=== PATIENT | female | born 1990 | race Native Hawaiian/Other Pacific Islander ===

== ENCOUNTER 2018-11-14 11:10 | Inpatient (IN) | payer OTHER ==
[2018-11-14 11:13] VITALS: BMI 19.5
[2018-11-14] MEDS ORDERED: Iohexol 240 (50 ml) PO ONE (11:46)
[2018-11-14] MEDS ORDERED: Sodium Chloride 0.9% 1,000 ML IV STA ×2 (11:47→18:36)
[2018-11-14] MEDS ORDERED: Iohexol 240 (50 ml) ONE (11:55)
[2018-11-14 12:18] LABS: BASO % 0.3 % (0.0-2.0); EOS % 0.1 % (0.0-4.0); HEMOGLOBIN 12.3 g/dL (12.0-16.0); LYMPH % 7.8 % (20.0-40.0); MEAN CELL VOLUME 92.7 fl (81.0-99.0); MEAN CORPUSCULAR HEMOGLOBIN 30.5 pg (27.0-31.0); MEAN CORPUSCULAR HGB CONC 32.9 g/dL (33.0-37.0); MEAN PLATELET VOLUME 8.3 fl (7.2-11.7); MONO # 0.7 K/uL (0.0-0.8); MONO % 5.9 % (0.0-10.0); NEUT # 10.9 K/uL (1.8-7.0); NEUT % 85.9 % (50.0-75.0); PLATELET COUNT 229 K/uL (130-400); RBC 4.04 Mil/uL (3.80-5.20); WHITE BLOOD COUNT 12.7 K/uL (4.8-10.8)
[2018-11-14 12:22] LABS: SQUAMOUS EPITHIAL 3 /hpf (0-5); URINE BACTERIA OCC (<OCC); URINE BILIRUBIN NEGATIVE (NEGATIVE); URINE BLOOD SMALL (NEGATIVE); URINE CLARITY SLIGHTY-CLOUDY (Clear); URINE COLOR YELLOW (YELLOW); URINE GLUCOSE (UA) NEG (NEGATIVE); URINE LEUKOCYTE ESTERASE NEG Leu/uL (Negative); URINE PROTEIN NEGATIVE (NEGATIVE); URINE UROBILINOGEN 0.2-1.0 mg/dL (0.2-1.0)
[2018-11-14 12:29] LABS: ALB/GLOB RATIO 1.2 (1.0-2.1); ALBUMIN 4.7 g/dL (3.5-5.0); ALT/SGPT 18 U/L (9-52); AST/SGOT 19 U/L (14-36); BLOOD UREA NITROGEN 11 mg/dl (7-17); CALCIUM 9.7 mg/dL (8.4-10.2); GFR NON-AFRICAN AMERICAN > 60; LIPASE 33 U/L (23-300)
--- NOTE | 2018-11-14 12:38 | ED PDOC ---
HPI: Abdomen <Red Brito - Last Filed: 11/14/18 15:21> Chief Complaint (Provider): Abdominal Pain History Per: Patient History/Exam Limitations: no limitations Onset/Duration Of Symptoms: Days (x1) Current Symptoms Are (Timing): Still Present Additional Complaint(s): Patient is a 28 y/o female with no significant PMhx who presents to the ED for evaluation of abdominal pain and nausea onset yesterday. Patient also states the pain is radiating to her right flank. Patient denies vomiting, diarrhea, urinary symptoms, and fever. Patient claims it may be endometriosis. PCP: None Provided <Jose E Higgins A - Last Filed: 11/14/18 17:22> Time Seen by Provider: 11/14/18 11:21 Chief Complaint (Nursing): Abdominal Pain Past Medical History Vital Signs: Last Vital Signs Temp 97.9 F 11/14/18 11:13 Pulse 76 11/14/18 13:05 Resp 18 11/14/18 13:05 BP 115/68 11/14/18 13:05 Pulse Ox 100 11/14/18 15:21 <Red Brito M - Last Filed: 11/14/18 15:21> Reviewed: Historical Data, Nursing Documentation, Vital Signs Vital Signs: Last Vital Signs Temp 97.9 F 11/14/18 11:13 Pulse 82 11/14/18 11:13 Resp 18 11/14/18 11:13 BP 106/65 11/14/18 11:13 Pulse Ox 100 11/14/18 11:13 - Medical History PMH: No Chronic Diseases - Surgical History Surgical History: No Surg Hx - Family History Family History: States: No Known Family Hx - Social History Current smoker - smoking cessation education provided: No Ex-Smoker (has not smoked in the last 12 months): No Alcohol: None Drugs: Denies <Jose E Higgins - Last Filed: 11/14/18 17:22> - Allergies Allergies/Adverse Reactions: Allergies Allergy/AdvReac Type Severity Reaction Status Date / Time gentamicin Allergy RASH Verified 11/14/18 11:29 Penicillins Allergy RASH Verified 11/14/18 11:29 Review of Systems ROS Statement: Except As Marked, All Systems Reviewed And Found Negative Constitutional: Negative for: Fever Gastrointestinal: Positive for: Nausea, Abdominal Pain (raidating to right flank). Negative for: Vomiting, Diarrhea Genitourinary Female: Negative for: Dysuria, Frequency, Incontinence, Hematuria <Jose E Higgins - Last Filed: 11/14/18 17:22> Physical Exam - Reviewed Nursing Documentation Reviewed: Yes Vital Signs Reviewed: Yes - Physical Exam Appears: Positive for: Uncomfortable Head Exam: Positive for: ATRAUMATIC, NORMAL INSPECTION, NORMOCEPHALIC Skin: Positive for: Normal Color, Warm, DRY Eye Exam: Positive for: EOMI, Normal appearance, PERRL Neck: Positive for: Normal, Painless ROM, Supple Cardiovascular/Chest: Positive for: Regular Rate, Rhythm. Negative for: Murmur Respiratory: Positive for: Normal Breath Sounds. Negative for: Respiratory Distress Gastrointestinal/Abdominal: Positive for: Soft, Tenderness (diffuse; more to lower right quadrant), Guarding Back: Positive for: Normal Inspection. Negative for: L CVA Tenderness, R CVA Tenderness, Vertebral Tenderness Extremity: Positive for: Normal ROM. Negative for: Pedal Edema, Deformity Neurological/Psych: Positive for: Alert, Oriented (x3) <Jose E Higgins A - Last Filed: 11/14/18 17:22> - Laboratory Results Result Diagrams: 11/14/18 12:02 11/14/18 12:02 Lab Results: Total Bilirubin 1.2 mg/dl (0.2-1.3) 11/14/18 12:02 AST 19 U/L (14-36) 11/14/18 12:02 ALT 18 U/L (9-52) 11/14/18 12:02 Alkaline Phosphatase 51 U/L (38-126) 11/14/18 12:02 Total Protein 8.5 G/DL (6.3-8.2) H 11/14/18 12:02 Albumin 4.7 g/dL (3.5-5.0) 11/14/18 12:02 Globulin 3.8 gm/dL (2.2-3.9) 11/14/18 12:02 Albumin/Globulin Ratio 1.2 (1.0-2.1) 11/14/18 12:02 Lipase 33 U/L (23-300) 11/14/18 12:02 Urine Color Yellow (YELLOW) 11/14/18 11:54 Urine Clarity Slighty-cloudy (Clear) 11/14/18 11:54 Urine pH 7.0 (5.0-8.0) 11/14/18 11:54 Ur Specific [place] 1.009 (1.003-1.030) 11/14/18 11:54 Urine Protein Negative mg/dL (NEGATIVE) 11/14/18 11:54 Urine Glucose (UA) Neg mg/dL (NEGATIVE) 11/14/18 11:54 Urine Ketones Negative mg/dL (NEGATIVE) 11/14/18 11:54 Urine Blood Small (NEGATIVE) 11/14/18 11:54 Urine Nitrate Negative (NEGATIVE) 11/14/18 11:54 Urine Bilirubin Negative (NEGATIVE) 11/14/18 11:54 Urine Urobilinogen 0.2-1.0 mg/dL (0.2-1.0) 11/14/18 11:54 Ur Leukocyte Esterase Neg [place]/uL (Negative) 11/14/18 11:54 Urine RBC (Auto) 4 /hpf (0-3) H 11/14/18 11:54 Urine Microscopic WBC 9 /hpf (0-5) H 11/14/18 11:54 Ur Squamous Epith Cells 3 /hpf (0-5) 11/14/18 11:54 Urine Bacteria Occ (<OCC) H 11/14/18 11:54 <Red Brito M - Last Filed: 11/14/18 15:21> - Laboratory Results Result Diagrams: 11/14/18 12:02 11/14/18 12:02 Lab Results: Total Bilirubin 1.2 mg/dl (0.2-1.3) 11/14/18 12:02 AST 19 U/L (14-36) 11/14/18 12:02 ALT 18 U/L (9-52) 11/14/18 12:02 Alkaline Phosphatase 51 U/L (38-126) 11/14/18 12:02 Total Protein 8.5 G/DL (6.3-8.2) H 11/14/18 12:02 Albumin 4.7 g/dL (3.5-5.0) 11/14/18 12:02 Globulin 3.8 gm/dL (2.2-3.9) 11/14/18 12:02 Albumin/Globulin Ratio 1.2 (1.0-2.1) 11/14/18 12:02 Lipase 33 U/L (23-300) 11/14/18 12:02 Urine Color Yellow (YELLOW) 11/14/18 11:54 Urine Clarity Slighty-cloudy (Clear) 11/14/18 11:54 Urine pH 7.0 (5.0-8.0) 11/14/18 11:54 Ur Specific [place] 1.009 (1.003-1.030) 11/14/18 11:54 Urine Protein Negative mg/dL (NEGATIVE) 11/14/18 11:54 Urine Glucose (UA) Neg mg/dL (NEGATIVE) 11/14/18 11:54 Urine Ketones Negative mg/dL (NEGATIVE) 11/14/18 11:54 Urine Blood Small (NEGATIVE) 11/14/18 11:54 Urine Nitrate Negative (NEGATIVE) 11/14/18 11:54 Urine Bilirubin Negative (NEGATIVE) 11/14/18 11:54 Urine Urobilinogen 0.2-1.0 mg/dL (0.2-1.0) 11/14/18 11:54 Ur Leukocyte Esterase Neg [place]/uL (Negative) 11/14/18 11:54 Urine RBC (Auto) 4 /hpf (0-3) H 11/14/18 11:54 Urine Microscopic WBC 9 /hpf (0-5) H 11/14/18 11:54 Ur Squamous Epith Cells 3 /hpf (0-5) 11/14/18 11:54 Urine Bacteria Occ (<OCC) H 11/14/18 11:54 - ECG O2 Sat by Pulse Oximetry: 100 (RA) Pulse Ox Interpretation: Normal <Jose E Higgins - Last Filed: 11/14/18 17:22> Medical Decision Making Medical Decision Making: Time: 1145 Impression: Abdominal Pain DDx includes by not limited to acute appendicitis, ovarian cyst, endometriosis, and ovarian torsion; r/o complication. Plan: CT Abd Pelvis PO & IV Contrast CMP Lipase NPO Diet Urine Urine Dipstick CBC IV fluids Omnipaque 50 ml PO UA Time: 1230 Urine and both negative. Time: 1500 Patient endorsed from provider to Red Brito MD. Pending CT and reevaluation. Scribe Attestation: Documented by Miles Hall, acting as a scribe for Jose E Higgins MD. Provider Scribe Attestation: All medical record entries made by the Scribe were at my direction and personally dictated by me. I have reviewed the chart and agree that the record accurately reflects my personal performance of the history, physical exam, medical decision making, and the department course for this patient. I have also personally directed, reviewed, and agree with the discharge instructions and disposition. <Jose E Higgins - Last Filed: 11/14/18 17:22> Disposition <Red Brito - Last Filed: 11/14/18 15:21> - Patient ED Disposition Is Patient to be Admitted: Transfer of Care Counseled Patient/Family Regarding: Studies Performed, Diagnosis - Disposition Disposition: Transfer of Care Disposition Time: 15:00 Patient Signed Over To: Red Brito <Jose E Higgins - Last Filed: 11/14/18 17:22> - Clinical Impression Clinical Impression: UTI (urinary tract infection) - Disposition Condition: STABLE
[2018-11-14] MEDS ORDERED: Iohexol 300 100 ML IJ ONE (12:56)
[2018-11-14] MEDS ORDERED: Sodium Chloride 0.9% 50 ML IV ONE (12:56)
[2018-11-14 14:43] LABS: BANDS 3 % (0-2); LYMPHOCYTE 7 % (20-50); MONOCYTE 7 % (0-10); NEUTROPHIL 83 % (42-75); PLATELET ESTIMATE NORMAL (NORMAL); TOTAL CELLS COUNTED 100
--- NOTE | 2018-11-14 15:21 | ED PDOC ---
- Laboratory Results Result Diagrams: 11/14/18 12:02 11/14/18 12:02 Lab Results: Total Bilirubin 1.2 mg/dl (0.2-1.3) 11/14/18 12:02 AST 19 U/L (14-36) 11/14/18 12:02 ALT 18 U/L (9-52) 11/14/18 12:02 Alkaline Phosphatase 51 U/L (38-126) 11/14/18 12:02 Total Protein 8.5 G/DL (6.3-8.2) H 11/14/18 12:02 Albumin 4.7 g/dL (3.5-5.0) 11/14/18 12:02 Globulin 3.8 gm/dL (2.2-3.9) 11/14/18 12:02 Albumin/Globulin Ratio 1.2 (1.0-2.1) 11/14/18 12:02 Lipase 33 U/L (23-300) 11/14/18 12:02 Urine Color Yellow (YELLOW) 11/14/18 11:54 Urine Clarity Slighty-cloudy (Clear) 11/14/18 11:54 Urine pH 7.0 (5.0-8.0) 11/14/18 11:54 Ur Specific [place] 1.009 (1.003-1.030) 11/14/18 11:54 Urine Protein Negative mg/dL (NEGATIVE) 11/14/18 11:54 Urine Glucose (UA) Neg mg/dL (NEGATIVE) 11/14/18 11:54 Urine Ketones Negative mg/dL (NEGATIVE) 11/14/18 11:54 Urine Blood Small (NEGATIVE) 11/14/18 11:54 Urine Nitrate Negative (NEGATIVE) 11/14/18 11:54 Urine Bilirubin Negative (NEGATIVE) 11/14/18 11:54 Urine Urobilinogen 0.2-1.0 mg/dL (0.2-1.0) 11/14/18 11:54 Ur Leukocyte Esterase Neg [place]/uL (Negative) 11/14/18 11:54 Urine RBC (Auto) 4 /hpf (0-3) H 11/14/18 11:54 Urine Microscopic WBC 9 /hpf (0-5) H 11/14/18 11:54 Ur Squamous Epith Cells 3 /hpf (0-5) 11/14/18 11:54 Urine Bacteria Occ (<OCC) H 11/14/18 11:54 - ECG O2 Sat by Pulse Oximetry: 100 (RA) Pulse Ox Interpretation: Normal - Progress ED Course And Treament: 1600: Will get US. Normal appendix. Evaluate cysts on ovary. Pain states she does not want any pain meds. AAOx3. Urine wbc, blood wbc. 1810: Stable. Pt. states she had polp removed from her uterus recently. Pain possibly partially from that. Also ovarian cyst and uti. Pt. to fu with her obgyn. AAOx3. Pain controlled. Tolerated PO. Medical Decision Making Medical Decision Making: Time: 1500 Patient endorsed to provider from oJse E Higgins MD. Pending CT and r eevaluation. Time: 153 FINDINGS: LOWER THORAX: Unremarkable. LIVER: Unremarkable. No gross lesion or ductal dilatation. GALLBLADDER AND BILE DUCTS: Unremarkable. PANCREAS: Unremarkable. No gross lesion or ductal dilatation. SPLEEN: Unremarkable. ADRENALS: Unremarkable. No mass. KIDNEYS AND URETERS: Left 4 mm medial lower pole hypodensity which may be a cyst versus tiny angiomyolipoma. No hydronephrosis. No solid mass. VASCULATURE: Unremarkable. No aortic aneurysm. No aortic atherosclerotic calcification or mural plaque present. BOWEL: Unremarkable. No obstruction. No gross mural thickening. APPENDIX: Normal appendix. PERITONEUM: Unremarkable. No free fluid. No free air. LYMPH NODES: Unremarkable. No enlarged lymph nodes. BLADDER: Unremarkable. REPRODUCTIVE: 4.3 x 3.7 cm and 4.6 x 4.5 cm hypodense structures that cannot be characterized as simple cysts. Small amount of pelvic fluid that mildly enhances. Involuting corpus luteal follicle. BONES: No acute fracture. OTHER FINDINGS: None. IMPRESSION: Probable adnexal hemorrhagic cysts, possibly ruptured with small amount of free fluid in the deep pelvis which demonstrates mild enhancement. Pelvic ultrasound is recommended for further evaluation. Normal appendix. Scribe Attestation: Documented by Miles Hall, acting as a scribe for Red Brito MD. Provider Scribe Attestation: All medical record entries made by the Scribe were at my direction and personally dictated by me. I have reviewed the chart and agree that the record accurately reflects my personal performance of the history, physical exam, medical decision making, and the department course for this patient. I have also personally directed, reviewed, and agree with the discharge instructions and disposition. Disposition - Clinical Impression Clinical Impression: UTI (urinary tract infection), Ovarian cyst - POA Present On Arrival: None - Disposition Referrals: [facility] [Outside] - 11/15/18 [facility] [Outside] - 11/15/18 Disposition: Routine/Home Disposition Time: 18:13 Condition: STABLE Additional Instructions: Return if not better in 3 days. Prescriptions: Ibuprofen [Motrin] 600 mg PO TID 7 Days tab Nitrofurantoin Macrocrystals [Macrobid] 100 mg PO BID #10 cap Instructions: Ovarian Cysts, Urinary Tract Infections in Adults Forms: [facility] ED School/Work Excuse
--- NOTE | 2018-11-14 15:35 | CT ---
Date of service: 11/14/2018 PROCEDURE: CT Abdomen and Pelvis with contrast HISTORY: RLQ pain COMPARISON: None. TECHNIQUE: Contrast dose: 98 mL Omnipaque 300 Radiation dose: Total exam DLP = 252.91 mGy-cm. This CT exam was performed using one or more of the following dose reduction techniques: Automated exposure control, adjustment of the mA and/or kV according to patient size, and/or use of iterative reconstruction technique. FINDINGS: LOWER THORAX: Unremarkable. LIVER: Unremarkable. No gross lesion or ductal dilatation. GALLBLADDER AND BILE DUCTS: Unremarkable. PANCREAS: Unremarkable. No gross lesion or ductal dilatation. SPLEEN: Unremarkable. ADRENALS: Unremarkable. No mass. KIDNEYS AND URETERS: Left 4 mm medial lower pole hypodensity which may be a cyst versus tiny angiomyolipoma. No hydronephrosis. No solid mass. VASCULATURE: Unremarkable. No aortic aneurysm. No aortic atherosclerotic calcification or mural plaque present. BOWEL: Unremarkable. No obstruction. No gross mural thickening. APPENDIX: Normal appendix. PERITONEUM: Unremarkable. No free fluid. No free air. LYMPH NODES: Unremarkable. No enlarged lymph nodes. BLADDER: Unremarkable. REPRODUCTIVE: 4.3 x 3.7 cm and 4.6 x 4.5 cm hypodense structures that cannot be characterized as simple cysts. Small amount of pelvic fluid that mildly enhances. Involuting corpus luteal follicle. BONES: No acute fracture. OTHER FINDINGS: None. IMPRESSION: Probable adnexal hemorrhagic cysts, possibly ruptured with small amount of free fluid in the deep pelvis which demonstrates mild enhancement. Pelvic ultrasound is recommended for further evaluation. Normal appendix.
[2018-11-14] MEDS ORDERED: Ciprofloxacin 400mg/200ml D5W 400 MG/200 ML BAG IV STA (18:36)
[2018-11-14] MEDS ORDERED: Ciprofloxacin 400mg/200ml D5W 400 MG/200 ML BAG IVPB ONE (18:49)
[2018-11-14] MEDS ORDERED: metroNIDAZOLE 500mg/100ml NS 100 ML IV STA (20:28)
--- NOTE | 2018-11-14 20:53 | CP.PCM.CON ---
History of Present Illness - History of Present Illness History of Present Illness: Surgery: Dr. Petersen Reason for consult: intractable abdominal pain HPI: Patient is a 28 y/o female who presents with diffuse abdominal pain that started acutely yesterday. She reports the pain being located in the pelvis and right and left abdomen. She states the pain is difficult to describe but feels like the worse period and similar to periods she had in the past when she was diagnosed with endometriosis. Of note, she had a hysteroscopy with uterine polypectomy 9 days prior to presentation. She states post procedure she was doing fine until yesterday. She awoke this am around midnight because the pain was so severe. She went to urgent clinic and was instructed to come to ER for further eval. She reports associated chills and nausea but no fever or vomiting. She has noticed loose stools the past 24hrs and dysuria. No vaginal bleeding or malodorous discharge. She states her last period started October 27 and lasted 7 days, denies heavy menses. She is currently seeing reproductive specialist Dr. Long for fertility. PMH: questionable endometriosis, ovarian cysts, uterine polyp PSH: HSG and hysteroscopy w/ biopsy Social: denies ETOH, tobacco, drug use Meds: vitamins Review of Systems - Constitutional Constitutional: absent: Anorexia, Chills, Fever, Weight Loss - EENT Eyes: absent: Blurred Vision, Change in Vision Ears: absent: Disequilibrium, Dizziness Nose/Mouth/Throat: absent: Nose Pain, Sore Throat - Cardiovascular Cardiovascular: absent: Chest Pain, Dyspnea - Respiratory Respiratory: absent: Dyspnea, Wheezing - Gastrointestinal Gastrointestinal: Abdominal Pain, Cramping, Diarrhea, Loose Stools, Nausea. absent: Bloating, Constipation, Dyspepsia, Vomiting - Genitourinary Genitourinary: Dysuria. absent: Hematuria - Reproductive: Female Reproductive:Female: Menses 1-7 Days, Normal Menses, Pelvic Pain. absent: Abnormal Vaginal Bleeding, Genital Lesions, Genital Pruritis, Vaginal Discharge, Vaginal Odor, Vaginal Pruritis - Menstruation Menstruation: As Per HPI - Musculoskeletal Musculoskeletal: absent: Deformity, Muscle Cramps - Integumentary Integumentary: absent: Rash, Sores - Neurological Neurological: absent: Tingling, Vertigo - Endocrine Endocrine: absent: Polydipsia, Polyphagia - Hematologic/Lymphatic Hematologic: absent: Easy Bleeding, Easy Bruising Past Patient History - Past Social History Alcohol: None Drugs: Denies - PSYCHIATRIC Hx Substance Use: No - SURGICAL HISTORY Hx Surgeries: Yes - ANESTHESIA Hx Anesthesia: Yes Hx Anesthesia Reactions: No Hx Malignant Hyperthermia: No Meds Home Medications: Home Medication List Medication Instructions Recorded Confirmed Type Ibuprofen [Motrin] 600 mg PO TID 7 Days tab 11/14/18 Rx Nitrofurantoin Macrocrystals 100 mg PO BID #10 cap 11/14/18 Rx [Macrobid] Allergies/Adverse Reactions: Allergies Allergy/AdvReac Type Severity Reaction Status Date / Time gentamicin Allergy RASH Verified 11/14/18 11:29 Penicillins Allergy RASH Verified 11/14/18 11:29 - Medications Medications: Current Medications Metronidazole (Flagyl 500mg/100ml Ns) 100 mls @ 100 mls/hr IV STAT STA; Protocol Stop: 11/14/18 21:27 Physical Exam - Constitutional Appears: Non-toxic, No Acute Distress - Head Exam Head Exam: ATRAUMATIC, NORMOCEPHALIC - Eye Exam Eye Exam: EOMI, Normal appearance - ENT Exam ENT Exam: Mucous Membranes Moist - Respiratory Exam Respiratory Exam: NORMAL BREATHING PATTERN. absent: Respiratory Distress - Cardiovascular Exam Cardiovascular Exam: REGULAR RHYTHM. absent: Tachycardia - GI/Abdominal Exam GI & Abdominal Exam: Soft, Tenderness (R and L LQ, suprapubic). absent: Distended, Guarding, Rebound - Rectal Exam Rectal Exam: Deferred - Exam Speculum exam: Cervical Discharge (thick white ), Erythema (cervical ). absent: Foreign Body, Laceration, Vaginal Bleeding Bimanual exam: Cervical Motion Tendernes, Uterine Tenderness - Extremities Exam Extremities exam: Positive for: normal inspection. Negative for: calf tenderness - Neurological Exam Neurological exam: Alert, Oriented x3 - Psychiatric Exam Psychiatric exam: Flat Affect, Normal Mood - Skin Skin Exam: Diaphoretic, Dry, Warm Results - Vital Signs Recent Vital Signs: Last Vital Signs Temp 98.9 F 11/14/18 17:56 Pulse 81 11/14/18 17:56 Resp 18 11/14/18 17:56 BP 103/57 L 11/14/18 17:56 Pulse Ox 100 11/14/18 18:14 - Labs Result Diagrams: 11/14/18 12:02 11/14/18 12:02 Labs: Laboratory Results - last 24 hr 11/14/18 11/14/18 11/14/18 11:54 12:02 12:02 WBC 12.7 H RBC 4.04 Hgb 12.3 Hct 37.5 MCV 92.7 MCH 30.5 MCHC 32.9 L RDW 13.0 Plt Count 229 MPV 8.3 Neut % (Auto) 85.9 H Lymph % (Auto) 7.8 L [place] % (Auto) 5.9 Eos % (Auto) 0.1 Baso % (Auto) 0.3 Neut # (Auto) 10.9 H Lymph # (Auto) 1.0 [place] # (Auto) 0.7 Eos # (Auto) 0.0 Baso # (Auto) 0.0 Neutrophils % (Manual) 83 H Band Neutrophils % 3 H Lymphocytes % (Manual) 7 L Monocytes % (Manual) 7 Platelet Estimate Normal RBC Morphology Normal Sodium 137 Potassium 3.8 Chloride 101 Carbon Dioxide 24 Anion Gap 16 BUN 11 Creatinine 0.6 L Est GFR ( Amer) > 60 Est GFR (Non-Af Amer) > 60 Random Glucose 99 Calcium 9.7 Total Bilirubin 1.2 AST 19 ALT 18 Alkaline Phosphatase 51 Total Protein 8.5 H Albumin 4.7 Globulin 3.8 Albumin/Globulin Ratio 1.2 Lipase 33 Urine Color Yellow Urine Clarity Slighty-cloudy Urine pH 7.0 Ur Specific [place] 1.009 Urine Protein Negative Urine Glucose (UA) Neg Urine Ketones Negative Urine Blood Small Urine Nitrate Negative Urine Bilirubin Negative Urine Urobilinogen 0.2-1.0 Ur Leukocyte Esterase Neg Urine RBC (Auto) 4 H Urine Microscopic WBC 9 H Ur Squamous Epith Cells 3 Urine Bacteria Occ H Assessment & Plan - Assessment and Plan (Free Text) Assessment: 28 y/o F with pelvic pain post hysteroscopy w/ biopsy most likely 2/2 ruptured ovarian cyst vs endometritis vs PID Plan: -CT neg for acute appendicitis -patient seen and examined with [facility] who agrees with above diagnosis -will defer medical management to [facility] specialists regarding antibiotic choice -needs f/u with Dr. Long -no acute general surgical intervention at this time -d/w Dr. Petersen [facility] PGY4
[2018-11-14] MEDS ORDERED: metroNIDAZOLE 500mg/100ml NS 100 ML IVPB ONE (21:17)
[2018-11-15] MEDS: Sodium Chloride 0.9% 1,000 ML IV SCH ×3 (01:22→21:12)
--- NOTE | 2018-11-15 02:46 | CON ---
DATE: 11/14/2018 HISTORY OF PRESENT ILLNESS: This is a 28-year-old G0, last menstrual was 10/27/2018 who presents to the emergency department with severe lower abdominal pain. Reports that the pain started yesterday at noon and that she went to the Urgent Care at 9 a.m. and was recommended to go to the hospital. The patient is status post a hysteroscopic polypectomy for fertility treatment that occurred 9 days ago. The patient's doctor is Dr. Elva Felix at [facility] in [place]. I spoke with Dr. Felix over the phone and she explained that the hysteroscopy was unremarkable and that she saw the patient for a post-op visit on ., 11/11/2018, her exam was unremarkable and that the patient appeared to be doing well. The patient reports that she does have an appetite. She reports a little nausea, but denies vomiting. Reports a little pain with urination. She reports that her pain is currently 4/10 and that it radiated to her right side at noon. The patient reports that in the morning, her pain was worse in her upper abdomen and now the pain seems to be worse in her lower abdomen. Of note, the patient has a history of endometriosis. She reports that she had very bad pain when she was younger with her periods and was diagnosed with endometriosis in [place]. Dr. Elva Felix explained that she did an ultrasound on this patient in October and that on the left ovary, there was a 50 x 30 x 34 mm endometrioma and on the right ovary, a 23 x 25 x 28 mm endometrioma. The patient also reports that she had a watery bowel movement yesterday. All other systems reviewed and negative. PAST MEDICAL HISTORY: Healthy. PAST SURGICAL HISTORY: Hysterosalpingogram was done about a month ago. Hysteroscopic polypectomy was done about 9 days ago. MEDICATIONS: vitamins. ALLERGIES: PENICILLIN, UNKNOWN REACTION. GENTAMICIN, BODY RASH. FAMILY HISTORY: Father with lung cancer. Paternal uncle with questionable unknown kind of cancer and paternal grandfather with questionable unknown kind of cancer. SOCIAL HISTORY: The patient denies tobacco, alcohol, and illicit drug use. 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 Reports that her periods last about 7 days and denies any history of any sexually transmitted diseases. PHYSICAL EXAMINATION: VITAL SIGNS: Afebrile. Vital signs are stable. GENERAL: The patient is lying still in her stretcher and appears diaphoretic and in pain. ABDOMEN: Soft and tender, more tender in the lower abdomen than in the upper abdomen. Uterus seems to be the area where there is the most tenderness. No rebound or guarding. EXTREMITIES: Nontender. No edema. SPECULUM: Speculum exam revealed normal appearing white discharge with no foul odor; gonorrhea and chlamydia testing was sent. PELVIC: Vaginal exam revealed mild cervical motion tenderness and bilateral adnexal tenderness. LABORATORY DATA: White blood cell count is 12.7, hemoglobin 12.3, platelets 229. Band neutrophils percent is 3, which is high and her neutrophil percent is 83%m which is also high. Comprehensive metabolic panel is normal. Urinalysis is slightly cloudy, 4 RBC's, 9 WBCs, 3 squamous epithelial cells, and occasional bacteria. Blood cultures and urine cultures were sent. DIAGNOSTIC DATA: Abdomen and pelvic CT scan revealed 4.3 x 3.7 and 4.6 x 4.5 cm hypodense structures that cannot be characterized as simple cysts. Small amount of pelvic fluid that mildly enhances. Involuting corpus luteal follicle. The impression is a probable adnexal hemorrhagic cysts, possibly ruptured with small amount of free fluid in the deep pelvis which demonstrates mild enhancement. Pelvic ultrasound was recommended for further evaluation, which is currently still pending. ASSESSMENT AND PLAN: This is a 28-year-old G0 who is presenting with abdominal pain and leukocytosis with bandemia, status post a hysteroscopic polypectomy that occurred 9 days ago with known bilateral endometriotic cysts on both ovaries as seen in October by her fertility specialist, Dr. Elva Felix. The patient is being admitted for treatment of a likely pelvic infection. This plan was discussed with Dr. Elva Felix, her fertility specialist who agreed with the plan and who also spoke to the patient and her over the phone regarding the plan. Will start with ciprofloxacin 400 every 12 hours IV and IV Flagyl 500 mg every 12 hours. The patient is receiving 2 mg of morphine as needed for pain. The patient is being admitted to the medicine service. Will follow as consulting service, Bassam Shaikh MD MTDD
[2018-11-15] MEDS: metroNIDAZOLE 500mg/100ml NS 100 ML IVPB SCH ×3 (05:49→22:23)
[2018-11-15] MEDS: Ciprofloxacin 400mg/200ml D5W 400 MG/200 ML BAG IVPB SCH ×2 (09:06→21:12)
[2018-11-15 10:33] LABS: BASO % 0.3 % (0.0-2.0); EOS # 0.1 K/uL (0.0-0.7); HEMOGLOBIN 10.7 g/dL (12.0-16.0); LYMPH # 1.5 K/uL (1.0-4.3); LYMPH % 20.4 % (20.0-40.0); MEAN CELL VOLUME 92.4 fl (81.0-99.0); MEAN CORPUSCULAR HEMOGLOBIN 31.3 pg (27.0-31.0); MEAN CORPUSCULAR HGB CONC 33.8 g/dL (33.0-37.0); MEAN PLATELET VOLUME 8.1 fl (7.2-11.7); MONO # 0.6 K/uL (0.0-0.8); MONO % 7.8 % (0.0-10.0); NEUT # 5.3 K/uL (1.8-7.0); NEUT % 70.5 % (50.0-75.0); RBC 3.42 Mil/uL (3.80-5.20); RED CELL DISTRIBUTION WIDTH 13.3 % (11.5-14.5); WHITE BLOOD COUNT 7.5 K/uL (4.8-10.8)
--- NOTE | 2018-11-15 10:37 | CP.PCM.PN ---
<Surjit MaritzaJesus - Last Filed: 11/15/18 13:13> Subjective - Date & Time of Evaluation Date of Evaluation: 11/15/18 Time of Evaluation: 10:25 - Subjective Subjective: The patient is a 28 YO Female G0 admitted from ED yesterday due to diffuse lower abdominal pain with diagnosis of likely PID. Patient is being treated with IV antibiotics Cipro 400 Q12 and Flagyl 500 Q8h on her second day of treatment today. Patient seen and examined today on follow up OB-RESIDENTIAL PEST CONTROL TECHNICIAN consult, she reports feeling better today from her lower abdominal pain rated today 2-3/10 vs yesterday was 7/10, her pain is intermittent, she also c/o mild epigastric pain and occasional watery stools. Patient denies VB, dysuria, N/V, chills, fever or other acute medical complaint at present Of note patient has h/o endometriosis and she is being f/u by Dr Elva Felix at [facility] for infertility. Patient is s/p hysteroscopy polypectomy for fertility alexandra atment 10 days ago. Objective - Vital Signs/Intake and Output Vital Signs (last 24 hours): Temp Pulse Resp BP Pulse Ox 98.1 F 66 20 99/59 L 98 11/15/18 09:00 11/15/18 09:00 11/15/18 09:00 11/15/18 09:00 11/15/18 09:00 - Medications Medications: Current Medications Sodium Chloride (Sodium Chloride 0.9%) 1,000 mls @ 100 mls/hr IV .Q10H BONNIE Stop: 11/16/18 01:10 Last Admin: 11/15/18 01:22 Dose: 100 mls/hr Ciprofloxacin (Cipro 400mg/200ml Dsw) 400 mg in 200 mls @ 200 mls/hr IVPB Q12 BONNIE; Protocol Last Admin: 11/15/18 09:06 Dose: 200 mls/hr Metronidazole (Flagyl 500mg/100ml Ns) 100 mls @ 100 mls/hr IVPB Q8H BONNIE; Protocol Last Admin: 11/15/18 05:49 Dose: 100 mls/hr Morphine Sulfate (Morphine) 2 mg IVP Q4 PRN PRN Reason: Pain, moderate (4-7) Ondansetron HCl (Zofran Inj) 4 mg IVP Q6 PRN PRN Reason: Nausea/Vomiting - Labs Labs: 11/14/18 12:02 11/14/18 12:02 - Constitutional Appears: No Acute Distress - Head Exam Head Exam: ATRAUMATIC, NORMOCEPHALIC - Eye Exam Eye Exam: EOMI - ENT Exam ENT Exam: Mucous Membranes Moist - Respiratory Exam Respiratory Exam: Clear to Ausculation Bilateral - Cardiovascular Exam Cardiovascular Exam: REGULAR RHYTHM, +S1, +S2 - GI/Abdominal Exam GI & Abdominal Exam: Soft, Tenderness (RLQ tenderness, epigastric tenderness) - Extremities Exam Extremities Exam: absent: Pedal Edema - Neurological Exam Neurological Exam: Alert - Skin Skin Exam: Normal Color, Warm Assessment and Plan - Assessment and Plan (Free Text) Assessment: This is a 28 YO Female G0 with PMHx of endometriosis who presented to the ED with c/o lower abdominal pain with h/o status post hysteroscopy polypectomy 10 days ago and was admitted for evaluation and management of possible PID. Patient is doing clinically better today, pain improved. Plan -Liquid diet as per hospitalist team -CT scan of abdomen and pelvis revealed: Normal appendix. A probable adnexal hemorrhagic cyst, possibly rupture with small amount of free fluid in pelvis. Pelvic US recommended -Pelvic US done: f/u pending final report -CBC: shows mild leukocytosis on admission 02/13- WBC 12.7 with bandemia 3%, today >>WBC normal 7.5. -UA reviewed: negative nitrate, negative leukosterase -Patient was evaluated by Surgery: no acute surgical intervention at this time -C/w IV antibiotic: Cipro 400 Q12h, Flagyl 500 Q8h, shows good response. -Pain management by medicine team: morphine 2 mg Q4h PRN pain severe -GC/Cl sent, pending results Case reviewed and discussed with attending Dr Barr Thank you for this consult <Concepción Barr - Last Filed: 11/16/18 07:47> Objective - Vital Signs/Intake and Output Vital Signs (last 24 hours): Temp Pulse Resp BP Pulse Ox 97.8 F 68 18 99/68 L 97 11/16/18 00:15 11/16/18 00:15 11/16/18 00:15 11/16/18 00:15 11/16/18 00:15 - Medications Medications: Current Medications Ciprofloxacin (Cipro 400mg/200ml Dsw) 400 mg in 200 mls @ 200 mls/hr IVPB Q12 BONNIE; Protocol Last Admin: 11/15/18 21:12 Dose: 200 mls/hr Metronidazole (Flagyl 500mg/100ml Ns) 100 mls @ 100 mls/hr IVPB Q8H BONNIE; Protocol Last Admin: 11/16/18 05:13 Dose: 100 mls/hr Morphine Sulfate (Morphine) 2 mg IVP Q4 PRN PRN Reason: Pain, moderate (4-7) Ondansetron HCl (Zofran Inj) 4 mg IVP Q6 PRN PRN Reason: Nausea/Vomiting - Labs Labs: 11/16/18 05:35 11/16/18 05:35 Assessment and Plan - Assessment and Plan (Free Text) Assessment: Addendum by Dr. Barr: I have evaluated the patient independently and I agree with the above
[2018-11-15 16:37] VITALS: RESP 18
[2018-11-16] MEDS: metroNIDAZOLE 500mg/100ml NS 100 ML IVPB SCH ×2 (05:13→16:51)
[2018-11-16 06:34] LABS: HEMOGLOBIN 10.9 g/dL (12.0-16.0); MEAN CELL VOLUME 92.7 fl (81.0-99.0); MEAN CORPUSCULAR HEMOGLOBIN 31.4 pg (27.0-31.0); MEAN CORPUSCULAR HGB CONC 33.8 g/dL (33.0-37.0); RBC 3.49 Mil/uL (3.80-5.20); RED CELL DISTRIBUTION WIDTH 13.1 % (11.5-14.5); WHITE BLOOD COUNT 6.4 K/uL (4.8-10.8)
[2018-11-16 06:45] LABS: ALB/GLOB RATIO 1.1 (1.0-2.1); ALT/SGPT 21 U/L (9-52); AST/SGOT 15 U/L (14-36); BLOOD UREA NITROGEN 6 mg/dl (7-17); CALCIUM 9.1 mg/dL (8.4-10.2); GFR NON-AFRICAN AMERICAN > 60
[2018-11-16] MEDS ORDERED: Bismuth Subsalicylate 262 mg Chew Tab PO PRN ×2 (08:04→08:30)
--- NOTE | 2018-11-16 08:21 | HP ---
CHIEF COMPLAINT: Abdominal pain. HISTORY OF PRESENT ILLNESS: This is a 28-year-old female without significant past medical history other than endometriosis, who had recently about a week ago endometrial polyp removed by hysteroscopy and she was fine after that, but since yesterday, the patient started severe lower abdominal pain. So, the patient was brought to emergency room and the patient was evaluated by Surgery and field captain and was cleared for medical admission and the patient was admitted for further management. REVIEW OF SYSTEMS: Positive for abdominal pain. Review of systems otherwise is negative for headache, dizziness, syncope, loss of consciousness, chest pain, shortness of breath, nausea, vomiting, diarrhea, constipation, and any new joint or extremity pain. Review of system of all other organ system is unremarkable. PAST MEDICAL HISTORY: Unremarkable. PAST SURGICAL HISTORY: Remarkable for recent hysteroscopy, endometrial polypectomy and endometriosis. PERSONAL HISTORY: The patient is currently nonsmoker, nondrinker. No substance abuse. MEDICATIONS: The patient is not on any medication. ALLERGIES: THE PATIENT IS NOT ALLERGIC TO ANY MEDICATIONS. FAMILY HISTORY: Noncontributory. PHYSICAL EXAMINATION: GENERAL: Well-built, well-nourished 28-year-old female, in no acute distress. VITAL SIGNS: Temperature 98.1, pulse 66, respirations 20, blood pressure 99/59, saturation 98%. HEENT: Pupils reacting to light. No JVD. No thyromegaly. No lymphadenopathy. No nystagmus. Normocephalic, atraumatic skull. HEART: S1 and S2, normal and regular. No significant murmur, gallop, or rub is heard. LUNGS: Good bilateral air entry. No rales or rhonchi. ABDOMEN: Soft, nontender. No organomegaly. No fluid. Bowel sounds are present and normal. EXTREMITIES: No edema. No calf swelling. No tenderness. No acute ischemia. CENTRAL NERVOUS SYSTEM: Essentially unchanged and there is no sign of any acute gross focal motor or sensory neurological deficits. DIAGNOSTIC DATA: Available diagnostic data reviewed. WBC 7.5, hemoglobin 10.7, hematocrit 31.6, platelets 213. Sodium 137, potassium 3.8, chloride 101, bicarbonate 24, BUN 11, creatinine 0.6. SMA-12 is unremarkable. Urinalysis was negative. Abdomen CAT scan was unremarkable except possible adnexal hemorrhage exists, possibly ruptured with small amount of free fluid in deep . Surgery and Gynecology consult is noted and appreciated. IMPRESSION: Abdominal pain. PLAN: As ordered. Case and plan discussed with the patient. Dexter Fulton MD
--- NOTE | 2018-11-16 08:21 | CP.PCM.HP ---
Past Patient History - Past Medical History & Family History Past Medical History?: No - Past Social History Smoking Status: Never Smoked - HEMATOLOGICAL/ONCOLOGICAL Hx AIDS: No Hx Human Immunodeficiency Virus (HIV): No - MUSCULOSKELETAL/RHEUMATOLOGICAL Hx Falls: No - PSYCHIATRIC Hx Substance Use: No - SURGICAL HISTORY Hx Surgeries: Yes Other/Comment: s/p HYsteroscopy with polypectomy 11/05/18 @ [facility] - ANESTHESIA Hx Anesthesia: Yes Hx Anesthesia Reactions: No Hx Malignant Hyperthermia: No Meds Allergies/Adverse Reactions: Allergies Allergy/AdvReac Type Severity Reaction Status Date / Time gentamicin Allergy RASH Verified 11/14/18 11:29 Penicillins Allergy RASH Verified 11/14/18 11:29 Results - Vital Signs Recent Vital Signs: Last Vital Signs Temp 97.8 F 11/16/18 00:15 Pulse 68 11/16/18 00:15 Resp 18 11/16/18 00:15 BP 99/68 L 11/16/18 00:15 Pulse Ox 97 11/16/18 00:15 - Labs Result Diagrams: 11/16/18 05:35 11/16/18 05:35 Labs: Laboratory Results - last 24 hr 11/15/18 11/15/18 11/16/18 08:50 10:10 05:35 WBC 7.5 6.4 RBC 3.42 L 3.49 L Hgb 10.7 L 10.9 L Hct 31.6 L 32.3 L MCV 92.4 92.7 MCH 31.3 H 31.4 H MCHC 33.8 33.8 RDW 13.3 13.1 Plt Count 213 223 MPV 8.1 Neut % (Auto) 70.5 Lymph % (Auto) 20.4 [place] % (Auto) 7.8 Eos % (Auto) 1.0 Baso % (Auto) 0.3 Neut # (Auto) 5.3 Lymph # (Auto) 1.5 [place] # (Auto) 0.6 Eos # (Auto) 0.1 Baso # (Auto) 0.0 Sodium Potassium Chloride Carbon Dioxide Anion Gap BUN Creatinine Est GFR ( Amer) Est GFR (Non-Af Amer) Random Glucose Calcium Total Bilirubin AST ALT Alkaline Phosphatase Total Protein Albumin Globulin Albumin/Globulin Ratio Vitamin B12 881 TSH 3rd Generation 1.63 11/16/18 05:35 WBC RBC Hgb Hct MCV MCH MCHC RDW Plt Count MPV Neut % (Auto) Lymph % (Auto) [place] % (Auto) Eos % (Auto) Baso % (Auto) Neut # (Auto) Lymph # (Auto) [place] # (Auto) Eos # (Auto) Baso # (Auto) Sodium 138 Potassium 3.5 L Chloride 106 Carbon Dioxide 23 Anion Gap 13 BUN 6 L Creatinine 0.6 L Est GFR ( Amer) > 60 Est GFR (Non-Af Amer) > 60 Random Glucose 93 Calcium 9.1 Total Bilirubin 0.5 AST 15 ALT 21 Alkaline Phosphatase 46 Total Protein 7.6 Albumin 4.0 Globulin 3.6 Albumin/Globulin Ratio 1.1 Vitamin B12 TSH 3rd Generation
[2018-11-16] MEDS: Ciprofloxacin 400mg/200ml D5W 400 MG/200 ML BAG IVPB SCH ×2 (10:35→22:35)
[2018-11-16] MEDS ORDERED: Potassium Chloride 20 mEq ER Tab PO ONE (10:36)
--- NOTE | 2018-11-16 11:35 | CP.PCM.PN ---
Subjective - Date & Time of Evaluation Date of Evaluation: 11/16/18 Time of Evaluation: 07:20 - Subjective Subjective: 28 y/o F presented to ED with 2 days Hx of abdominal pain and nausea. At ED, CT showed probable ruptured adnexal hemorrhagic cysts. Today, pt was evaluated and examined by bedside with Dr Fulton. Pt reported R pelvic pain is still present but milder that yesterday. Pt now c/o epigastric abdominal pain and watery stools since yesterday. Pt afebrile and tolerating PO liquids. Pt denies shills, cehst pain, SOB, nausea, vomiting or blood in stools. Objective - Vital Signs/Intake and Output Vital Signs (last 24 hours): Temp Pulse Resp BP Pulse Ox 97.5 F L 58 L 18 94/58 L 99 11/16/18 08:39 11/16/18 08:39 11/16/18 08:39 11/16/18 08:39 11/16/18 08:39 - Medications Medications: Current Medications Acetaminophen (Tylenol 325mg Tab) 650 mg PO Q4 PRN PRN Reason: Pain, moderate (4-7) Bismuth Subsalicylate (Pepto Bismol) 262 mg PO Q1 PRN PRN Reason: Dyspepsia Ciprofloxacin (Cipro 400mg/200ml Dsw) 400 mg in 200 mls @ 200 mls/hr IVPB Q12 BONNIE; Protocol Last Admin: 11/16/18 10:35 Dose: 200 mls/hr Metronidazole (Flagyl 500mg/100ml Ns) 100 mls @ 100 mls/hr IVPB Q8H BONNIE; Protocol Last Admin: 11/16/18 05:13 Dose: 100 mls/hr Morphine Sulfate (Morphine) 1 mg IVP Q4 PRN PRN Reason: Pain, severe (8-10) Ondansetron HCl (Zofran Inj) 4 mg IVP Q6 PRN PRN Reason: Nausea/Vomiting Pantoprazole Sodium (Protonix Inj) 40 mg IVP DAILY [facility] Last Admin: 11/16/18 10:36 Dose: 40 mg - Labs Labs: 11/16/18 05:35 11/16/18 05:35 - Constitutional Appears: Well, No Acute Distress - Head Exam Head Exam: ATRAUMATIC, NORMAL INSPECTION - Eye Exam Eye Exam: EOMI - ENT Exam ENT Exam: Mucous Membranes Moist - Neck Exam Neck Exam: Full ROM, Normal Inspection. absent: Meningismus - Respiratory Exam Respiratory Exam: NORMAL BREATHING PATTERN. absent: Rales, Rhonchi, Wheezes - Cardiovascular Exam Cardiovascular Exam: +S1, +S2 - GI/Abdominal Exam GI & Abdominal Exam: Soft, Tenderness (lower abdomen. ), Normal Bowel Sounds. absent: Guarding, Rigid - Extremities Exam Extremities Exam: Full ROM. absent: Calf Tenderness, Pedal Edema - Back Exam Back Exam: absent: CVA tenderness (L), CVA tenderness (R) - Neurological Exam Neurological Exam: Alert, Awake, Oriented x3 Assessment and Plan - Assessment and Plan (Free Text) Assessment: 28 y/o F with hx of status post hysteroscopy polypectomy 10 days ago, was admitted for evaluation and management of pelvic pain and possible rupture ovarian cyst. --CT showed probable ruptured adnexal hemorrhagic cysts. PLAN: >Pelvic pain --Possibly ruptured ovarian cyst. --OBGYN on board. --Gen Surgery on board, Dr Petersen. No intervention recommended for now. --TVUS preliminary reading: trace fluid in the cul-de-sac, b/l ovarian hemorrhagic cyst. --On IV Metronidazole and Ciprofloxacin. --Considering repeating pelvic US if no improvement. --F/Y METALS ANALYST recommendations. >Epigastric abdominal pain --Possibly gastritis vs dyspepsia. --Pepto Bismol initiated. --IV Pantoprazole daily initiated. --Advanced to PO regular soft diet. >Diarrhea --On IV Antibiotics. --Possibly as result of liquid diet. --Will screen for C diff. >DVT Prophylaxis --SCD's --Ambulation encouraged. Case discussed with Dr Kirstin Mcmanus PGY-2
--- NOTE | 2018-11-16 13:17 | US ---
Date of service: 11/14/2018 HISTORY: vaginal bleeding; common patient reportedly had a polypectomy performed nine days previously, presumably from the endometrial cavity. COMPARISON: Abdomen pelvis CT with contrast 11/14/2018. TECHNIQUE: Transabdominal and transvaginal pelvic ultrasound was performed with longitudinal and transverse images submitted for interpretation. FINDINGS: UTERUS: Measures 8.4 x 4.6 x 5.3 cm. Normal in size and appearance. No fibroid or other mass lesion seen. ENDOMETRIUM: Measures 4.8 mm in diameter. Unremarkable. CERVIX: No cervical abnormality identified. RIGHT OVARY: Measures 5.4 x 3.4 x 4.5 cm. No solid mass. Normal flow. However, there is a mildly hypoechoic cyst with internal debris/soft tissue measuring 2.8 x 2.7 x 3.0 cm enlarging the right ovary mildly best appreciated in transvaginal portion of the examination is avascular on color Doppler ultrasound and likely reflects potential hemorrhagic cyst with endometrioma or other soft tissue lesion significantly less likely. Clinically correlate further. A few tiny follicles are scattered in the periphery of the right ovary. LEFT OVARY: Measures 6.3 x 3.6 x 5.0 cm. No solid mass. Normal flow. There is an additional complex cyst measuring 4.8 x 3.0 x 4.2 cm with a fluid fluid level formed within the cyst cavity also avascular on color Doppler ultrasound. A subacute or even early chronic hematoma is a possibility though this finding with endometrioma unlikely. FREE FLUID: Trace cul-de-sac fluid identified. OTHER FINDINGS: None. IMPRESSION: Bilateral adnexal cystic changes are identified moderately complex. Both are avascular on color per ultrasound but but enlarged both ovaries as discussed above. Trace fluid is seen the cul-de-sac. Uterus and cervix are unremarkable. The may reflect hemorrhagic cysts though other etiologies are possible and consider follow-up transvaginal pelvic ultrasonography in 8-12 weeks. If near term added imaging is required then consider pelvis MRI with and without contrast. Concordant preliminary report from Stu, 11/15/2018 8:26 a.m..
[2018-11-17] MEDS: metroNIDAZOLE 500mg/100ml NS 100 ML IVPB SCH ×3 (00:08→05:18)
[2018-11-17 06:48] LABS: BLOOD UREA NITROGEN 9 mg/dl (7-17); CALCIUM 9.4 mg/dL (8.4-10.2); GFR NON-AFRICAN AMERICAN > 60
[2018-11-17 06:53] LABS: HEMOGLOBIN 11.4 g/dL (12.0-16.0); MEAN CELL VOLUME 92.6 fl (81.0-99.0); MEAN CORPUSCULAR HGB CONC 33.5 g/dL (33.0-37.0); RBC 3.67 Mil/uL (3.80-5.20); RED CELL DISTRIBUTION WIDTH 13.2 % (11.5-14.5); WHITE BLOOD COUNT 8.9 K/uL (4.8-10.8)
[2018-11-17] MEDS ORDERED: Potassium Chloride 20 mEq/15 ml LIQ UD PO ONE (06:55)
[2018-11-17 08:17] VITALS: BP 95/54; PULSE 56; TEMP 97.6; O2SAT 99
[2018-11-17] MEDS: Ciprofloxacin 400mg/200ml D5W 400 MG/200 ML BAG IVPB SCH (08:52)
--- NOTE | 2018-11-17 09:07 | CP.PCM.DIS ---
Provider - Provider Date of Admission: 11/14/18 18:51 Attending physician: Dexter Fulton MD Consults: 11/14/18 18:57 Obgyn [MIX HOUSE OPERATOR Consult] Stat Comment: Consulting Provider: Amanda Shaikh Consulting Physician: Amanda Shaikh Reason for Consult: abd and pelvic pain; ovarian cyst 11/14/18 19:55 General Surgery Consult Stat Comment: Consulting Provider: Jose Petersen Consulting Physician: Jose Petersen Reason for Consult: abd pain Time Spent in preparation of Discharge (in minutes): 35 Diagnosis - Discharge Diagnosis (1) Ovarian cyst Status: Chronic (2) Ruptured ovarian cyst Status: Acute Comment: -F/u with outpatient TIRE BUILDER. -Repeat TVUS in 6-12 weeks. Hospital Course - Lab Results Lab Results: Micro Results 11/15/18 01:00 Blood-Venous Blood Culture - Preliminary NO GROWTH AFTER 48 HOURS 11/14/18 20:19 Blood-Venous Blood Culture - Preliminary NO GROWTH AFTER 48 HOURS Most Recent Lab Values WBC 8.9 K/uL (4.8-10.8) 11/17/18 06:29 RBC 3.67 Mil/uL (3.80-5.20) L 11/17/18 06:29 Hgb 11.4 g/dL (12.0-16.0) L 11/17/18 06:29 Hct 34.0 % (34.0-47.0) 11/17/18 06:29 MCV 92.6 fl (81.0-99.0) 11/17/18 06:29 MCH 31.0 pg (27.0-31.0) 11/17/18 06:29 MCHC 33.5 g/dL (33.0-37.0) 11/17/18 06:29 RDW 13.2 % (11.5-14.5) 11/17/18 06:29 Plt Count 239 K/uL (130-400) 11/17/18 06:29 MPV 8.1 fl (7.2-11.7) 11/15/18 10:10 Neut % (Auto) 70.5 % (50.0-75.0) 11/15/18 10:10 Lymph % (Auto) 20.4 % (20.0-40.0) 11/15/18 10:10 [place] % (Auto) 7.8 % (0.0-10.0) 11/15/18 10:10 Eos % (Auto) 1.0 % (0.0-4.0) 11/15/18 10:10 Baso % (Auto) 0.3 % (0.0-2.0) 11/15/18 10:10 Neut # (Auto) 5.3 K/uL (1.8-7.0) 11/15/18 10:10 Lymph # (Auto) 1.5 K/uL (1.0-4.3) 11/15/18 10:10 [place] # (Auto) 0.6 K/uL (0.0-0.8) 11/15/18 10:10 Eos # (Auto) 0.1 K/uL (0.0-0.7) 11/15/18 10:10 Baso # (Auto) 0.0 K/uL (0.0-0.2) 11/15/18 10:10 Neutrophils % (Manual) 83 % (42-75) H 11/14/18 12:02 Band Neutrophils % 3 % (0-2) H 11/14/18 12:02 Lymphocytes % (Manual) 7 % (20-50) L 11/14/18 12:02 Monocytes % (Manual) 7 % (0-10) 11/14/18 12:02 Platelet Estimate Normal (NORMAL) 11/14/18 12:02 RBC Morphology Normal (NORMAL) 11/14/18 12:02 Sodium 137 mmol/l (132-148) 11/17/18 06:29 Potassium 3.5 MMOL/L (3.6-5.0) L 11/17/18 06:29 Chloride 105 mmol/L (98-107) 11/17/18 06:29 Carbon Dioxide 22 mmol/L (22-30) 11/17/18 06:29 Anion Gap 14 (10-20) 11/17/18 06:29 BUN 9 mg/dl (7-17) 11/17/18 06:29 Creatinine 0.7 mg/dl (0.7-1.2) 11/17/18 06:29 Est GFR ( Amer) > 60 11/17/18 06:29 Est GFR (Non-Af Amer) > 60 11/17/18 06:29 Random Glucose 87 mg/dL (65-105) 11/17/18 06:29 Calcium 9.4 mg/dL (8.4-10.2) 11/17/18 06:29 Phosphorus 4.6 mg/dl (2.5-4.5) H 11/17/18 06:29 Magnesium 1.9 MG/DL (1.6-2.3) 11/17/18 06:29 Total Bilirubin 0.5 mg/dl (0.2-1.3) 11/16/18 05:35 AST 15 U/L (14-36) 11/16/18 05:35 ALT 21 U/L (9-52) 11/16/18 05:35 Alkaline Phosphatase 46 U/L (38-126) 11/16/18 05:35 Total Protein 7.6 G/DL (6.3-8.2) 11/16/18 05:35 Albumin 4.0 g/dL (3.5-5.0) 11/16/18 05:35 Globulin 3.6 gm/dL (2.2-3.9) 11/16/18 05:35 Albumin/Globulin Ratio 1.1 (1.0-2.1) 11/16/18 05:35 Lipase 33 U/L (23-300) 11/14/18 12:02 Vitamin B12 881 pg/mL (239-931) 11/15/18 08:50 TSH 3rd Generation 1.63 mIU/ML (0.46-4.68) 11/15/18 08:50 Urine Color Yellow (YELLOW) 11/14/18 11:54 Urine Clarity Slighty-cloudy (Clear) 11/14/18 11:54 Urine pH 7.0 (5.0-8.0) 11/14/18 11:54 Ur Specific [place] 1.009 (1.003-1.030) 11/14/18 11:54 Urine Protein Negative mg/dL (NEGATIVE) 11/14/18 11:54 Urine Glucose (UA) Neg mg/dL (NEGATIVE) 11/14/18 11:54 Urine Ketones Negative mg/dL (NEGATIVE) 11/14/18 11:54 Urine Blood Small (NEGATIVE) 11/14/18 11:54 Urine Nitrate Negative (NEGATIVE) 11/14/18 11:54 Urine Bilirubin Negative (NEGATIVE) 11/14/18 11:54 Urine Urobilinogen 0.2-1.0 mg/dL (0.2-1.0) 11/14/18 11:54 Ur Leukocyte Esterase Neg [place]/uL (Negative) 11/14/18 11:54 Urine RBC (Auto) 4 /hpf (0-3) H 11/14/18 11:54 Urine Microscopic WBC 9 /hpf (0-5) H 11/14/18 11:54 Ur Squamous Epith Cells 3 /hpf (0-5) 11/14/18 11:54 Urine Bacteria Occ (<OCC) H 11/14/18 11:54 C.trachomatis RNA (TMA) Not detected (Not Detected) 11/14/18 20:02 C. difficile Ag & Toxin Negative (NEGATIVE) 11/16/18 08:00 N.gonorrhoeae RNA (TMA) Not detected (Not Detected) 11/14/18 20:02 - Hospital Course Hospital Course: 28 y/o F with NO PMHx presented to ED with 2 days Hx of abdominal pain and nausea. At ED, CT showed probable ruptured adnexal hemorrhagic cysts. Pt was evaluated and examined by Gen Surgery team and TIRE BUILDER team who did NOT recommended surgical procedure. Pt was started on IV Ciprofloxacin and Metronidazole. Today, pt seen and examined with Dr Fulton by bedside, pt reported R pelvic pain and epigastric have improved. Stool C Diff Ag was performed due to diarrhea, results are negative. --TVUS: Bilateral adnexal cystic changes, avascular on color per ultrasound but enlarged both ovaries. Trace fluid is seen the cul-de-sac. Uterus and cervix are unremarkable. They may reflect hemorrhagic cysts though other etiologies are possible and consider follow-up transvaginal pelvic ultrasonography in 8-12 weeks. --Urinalysis showed no infection. Blood cultures neagtive x1 after 48 hours. --Pt afebrile, tolerating PO, urinating with no difficulties, is stable for discharge. Recommendations to f/u with outpatient TIRE BUILDER were given. No further recommendations from TIRE BUILDER team. ED precautions discussed with pt. Results reports and CD with images were given to patient. - Date & Time of H&P Date of H&P: 11/15/18 Time of H&P: 12:18 Discharge Exam - Head Exam Head Exam: ATRAUMATIC, NORMAL INSPECTION, NORMOCEPHALIC - Eye Exam Eye Exam: EOMI, PERRL - ENT Exam ENT Exam: Mucous Membranes Moist - Neck Exam Neck exam: Full Rom - Respiratory Exam Respiratory Exam: Clear to PA & Lateral, NORMAL BREATHING PATTERN - Cardiovascular Exam Cardiovascular Exam: REGULAR RHYTHM, +S1, +S2 - GI/Abdominal Exam GI & Abdominal Exam: Normal Bowel Sounds, Soft. absent: Distended, Firm, Guarding, Rebound, Rigid, Tenderness - Extremities Exam Extremities exam: full ROM, normal capillary refill, normal inspection - Back Exam Back exam: absent: CVA tenderness (L), CVA tenderness (R) - Neurological Exam Neurological exam: Alert, Oriented x3 Discharge Plan - Discharge Medications Prescriptions: Acetaminophen [Pain Reliever] 650 mg PO Q6H PRN #40 tablet PRN Reason: Pain, Severe (8-10) Famotidine [Pepcid] 20 mg PO DAILY #30 tab - Follow Up Plan Condition: STABLE Disposition: HOME/ ROUTINE Instructions: Ovarian Cysts Additional Instructions: --Please follow up with outpatient Dredge Mate, Dr Long, within 1 week. (May re peat TVUS in 6-12 weeks) --Imaging reports and CD with images are ready as requested. --Take PO Tylenol as needed for pain. --Return to ED if fever, unbearable pain, vaginal bleeding. Referrals: [facility] [Outside] - 11/15/18 [facility] [Outside] - 11/15/18 Elva Burrell MD [Non-Staff] -
== END 2018-11-17 13:15 | disposition home or self-care (01) | DRG 760 ==
LOC: H.ER 11:10 → H.ERHOLD 18:51 → H.MEDSURG1 11-15 01:01
PROVIDERS: ADMIT Internal Medicine; ATTEND Internal Medicine
DX: N83.209 Unspecified ovarian cyst, unspecified side (principal); N39.0 Urinary tract infection, site not specified; N73.9 Female pelvic inflammatory disease, unspecified; N80.9 Endometriosis, unspecified; D72.825 Bandemia; N97.9 Female infertility, unspecified; Z80.1 Family history of malignant neoplasm of trachea, bronchus and lung; N84.0 Polyp of corpus uteri